=== PATIENT | female | born 1990 | race African-American/Black ===

== ENCOUNTER 2016-09-29 15:47 | Emergency (ER) | payer OTHER ==
[~2016-09-29] VITALS: Ht 167.6 cm; Wt 61.2 kg
[~2016-09-29 15:47] MED LIST: FLEXERIL PO; NAPROSYN500 MG PO; NORCO 5-325 TA1 EACH PO
[2016-09-29 15:49] VITALS: BP 113/70
== END 2016-09-29 16:40 | disposition home or self-care (01) ==
LOC: ER 15:47
DX: Z32.02 Encounter for pregnancy test, result negative (principal); F17.210 Nicotine dependence, cigarettes, uncomplicated

== ENCOUNTER 2020-08-22 14:48 | Emergency (ER) | payer OTHER ==
[~2020-08-22] VITALS: Ht 167.6 cm; Wt 62.6 kg
[2020-08-22 14:50] VITALS: BP 112/76
[2020-08-22] MEDS ORDERED: ZANAFLEX4 M2 PO (15:49)
[2020-08-22] MEDS ORDERED: TYLENOL325 M1 PO (15:49)
[2020-08-22] MEDS ORDERED: IBUPROFEN 800800 MG PO (15:49)
== END 2020-08-22 16:14 | disposition home or self-care (01) ==
LOC: ER 14:48
DX: S16.1XXA Strain of muscle, fascia and tendon at neck level, initial encounter (principal); S80.02XA Contusion of left knee, initial encounter; S90.02XA Contusion of left ankle, initial encounter; S80.12XA Contusion of left lower leg, initial encounter; M54.9 Dorsalgia, unspecified; G44.209 Tension-type headache, unspecified, not intractable; F17.210 Nicotine dependence, cigarettes, uncomplicated; V89.2XXA Person injured in unspecified motor-vehicle accident, traffic, initial encounter; Y93.I9 Activity, other involving external motion; Y92.488 Other paved roadways as the place of occurrence of the external cause; Y99.8 Other external cause status